=== PATIENT | male | born 2005 ===

== ENCOUNTER 2024-10-14 18:17 | Emergency (ER) | payer SELFPAY ==
[2024-10-14 18:24] VITALS: BP 114/53; PULSE 72; RESP 20; TEMP 37.2; O2SAT 100
--- NOTE | 2024-10-14 18:56 | ER_ITS ---
This report was moved to the correct visit and correct patient on 10/24/2024. The original report was signed by Mar Rodriguez APRN on 10/14/241921. HPI - Male Genitourinary General Chief complaint: Urogenital-Male Stated complaint: STD Source: patient Mode of arrival: ambulatory Limitations: no limitations History of Present Illness HPI Narrative: Patient is a 16-year-old male who presents to the clinic wanting to be tested for STDs. His girlfriend wanted to be tested. He denies having any symptoms. Related Data Home Medications ?Medication ?Instructions ?Recorded ?Confirmed ?Last Taken ?Type clonidine HCl 0.1 mg tablet 0.1 mg PO HS 08/29/23 10/14/24 Unknown History Allergies Allergy/AdvReac Type Severity Reaction Status Date / Time No Known Allergies Allergy Verified 08/29/23 08:28 Review of Systems Review of Systems: CONSTITUTIONAL: Denies body aches, fever, chills, or sweats. CARDIOVASCULAR: Denies chest pain, palpitations, or edema. RESPIRATORY: Denies cough or dyspnea. GASTROINTESTINAL: Denies abdominal pain, nausea, vomiting, or diarrhea. GENITOURINARY: Denies dysuria, frequency, urgency, hematuria, flank pain, discharge. SKIN: Denies rash, itching, or wounds. MUSCULOSKELETAL: Denies back pain or myalgia. All systems reviewed & are unremarkable except as noted in HPI and below PMFSH Comments At time of signature, I have reviewed and agree with nursing past medical, surgical, social and family history unless otherwise noted. Please see nursing chart for further information. There is no relevant family history pertinent to the presenting complaint. Exam Narrative: GENERAL: Well-appearing and in no acute distress. ENT: Mucous membranes pink and moist. NECK: Normal AROM. ?Supple. ? CHEST: ?No respiratory distress. Clear to auscultation. HEART: Regular rate and rhythm. ABDOMEN: Soft, nontender, nondistended, normal active bowel sounds. ?No CVA tenderness. : Patient deferred exam. SKIN: Warm, dry, no rash. NEURO: No focal deficits. Alert and oriented x3. Gait steady. PSYCH: ?Normal affect. ? Course Course Level of Care: Express Care Visit Vital Signs Vital signs: Vital Signs Temperature 98.9 F 10/14/24 18:24 Pulse Rate 72 10/14/24 18:24 Respiratory Rate 20 10/14/24 18:24 Blood Pressure 114/53 L 10/14/24 18:24 Pulse Oximetry 100 10/14/24 18:24 Oxygen Delivery Room Air 10/14/24 18:24 Temperature 98.9 F 10/14/24 18:24 Pulse Rate 72 10/14/24 18:24 Respiratory Rate 20 10/14/24 18:24 Blood Pressure 114/53 L 10/14/24 18:24 Pulse Oximetry 100 10/14/24 18:24 Oxygen Delivery Room Air 10/14/24 18:24 Reviewed. MDM - Male Genitourinary MDM Narrative Medical decision making narrative: Discussed with patient that his results will come back in 2-3 days. He will be treated at that time if he is positive. Pt is appropriate for outpatient treatment and follow up. Discussed with Patient to follow up with PCP or [facility]; otherwise if symptoms persist or worsen go to ER. Differential Diagnosis Differential diagnosis: Likely urinary tract infection and other ( gonorrhea, chlamydia, ) Critical Care Time Critical Care Time Critical Care Time: No Discharge Plan Discharge Clinical Impression: Concern about STD in male without diagnosis Patient Disposition: Home Condition: Stable Instructions: Antibiotic Form, Chlamydia (ED), Gonorrhea (ED) Additional Instructions: Your urine sample has been sent off to test for gonorrhea, chlamydia, and trichomonas infections. These tests can take up to 2-3 days to come back. You will be notified by telephone if any of your tests come back positive. If you are positive, you will be treated at that time. In addition, if any of your tests come back positive, you will need to notify any partners that you have, and they will need to be tested and treated. If your tests come back negative and you are still experiencing symptoms, please follow-up with your PCP or urologist for further evaluation and treatment. If your symptoms worsen to include fever, abdominal pain, or back pain, please go to the hospital immediately. Patient Language: Liberian Prescriptions: No Action clonidine HCl 0.1 mg tablet 0.1 mg PO HS methylprednisolone [Medrol (Hermilo)] 4 mg tablets,dose pack See Rx Instructions .ROUTE .COMPLEX Qty: 21 0RF Rx Instructions: orally per package directions amoxicillin-pot clavulanate 875-125 mg tablet 1 tablet PO Q12H 10 Days Qty: 20 0RF Follow-up/Referrals: Isra,MELLY Mosquera [Primary Care Provider] - Time of Disposition: 19:00 Please be advised this is a medical document. It is intended for [id number] communication. It is written in medical language and may contain unfamiliar abbreviations or verbiage. Medical documents are intended to carry relevant information, facts as evident, and the clinical opinion of the practitioner at the time of the encounter. This report may have been done utilizing a voice recognition system. Attempts have been made to correct errors. However, there may be uncorrected grammatical, spelling, and recognition errors present. The file time of this note does not necessarily represent the time the patient was seen. Report Initialized date/time: Mar Rodriguez, LIUDMILA 10/14/241855 Electronically signed by: Mar Rodriguez, LIUDMILA 10/14/241921
[2024-10-15 21:38] LABS: Chlamydia trachomatis DETECTED (NOT DETECTE); Neisseria gonorrhoeae PCR NOT DETECTED (NOT DETECTE)
--- NOTE | 2024-10-22 08:21 | ED.GENADULT ---
HPI - General Adult General Stated complaint: n/a History of Present Illness HPI narrative: Patient is a 19-year-old male that was seen here 10/14 for STD screening. Patient denies symptoms off at times. Significant other was also tested at that time. Course Course Level of Care: Express Care Visit Medical Decision Making [facility] Narrative Medical decision making narrative: Called [phone] and spoke with patient, verify date , about positive chlamydia results. Doxycycline was called in to [facility] in [facility] on [address] on 10/17. Differential Diagnosis Differential Diagnosis: Chlamydia, gonorrhea, Trichomonas Discharge Plan Discharge Clinical Impression: Chlamydia Patient Disposition: Home Condition: Stable Instructions: Sexually Transmitted Diseases (ED) Additional Instructions: When you have been exposed to sexually transmitted infections, it is important that you seek comprehensive testing, since we do not provide testing for all sexually transmitted infections. Some infections can have no symptoms, but cause serious health problems. Contact your health care provider or report to the emergency department if: ? You have genital swelling or pain, or unusual bleeding. ? You have joint pain, rash, swollen lymph nodes or night sweats. ? You are severe abdominal pain. ? You have a fever. ? Symptoms do not go away or they get worse even after treatment. ? You have bleeding or pain during sex. Patient Language: Georgian
--- NOTE | 2024-11-15 08:22 | PC.NURSE ---
Addendum entered by Coyb Ryan RN 11/15/24 08:32: Spoke with patient on 11/11/24 not 11/15/24. Original Note: Pt Yannick Browning : 2005 verified, called @1800 stating [facility] [place] [facility] pick[facility] prescription for an STD over 3 weeks ago and pharmacy told him it was not there. Stated he spoke with someone from here to go get medicine. Pt asked me which pharmacy his medication went too. I read a note from MELLY Caro stating that on 10/17 she spoke with patient and verified and with patient's # [phone], Informed him of positive result and sent prescription Doxycycline into [facility] in [facility] on [address] I told pt to call pharmacy first to see if prescription is still there cause they only hold medications for so long. Pt informed to return call if prescription is no longer valid.? Pt has not called back.
--- NOTE | 2024-11-16 15:05 | PC.NURSE ---
1435 Patient's Mother called stating son(Yannick Browning):2005 was at [facility] in [facility] and the pharmacy did not have his prescription for Doxycycline and never received prescription that was originally called in on 10/17/24. MELLY Reyna resent Doxycycline to pharmacy. See previous notes.
== END 2024-10-14 19:07 | disposition home or self-care (01) ==
DX: A74.9 Chlamydial infection, unspecified (principal)
CPT/HCPCS: 87491; 87591; 99213; G0463